=== PATIENT | male | born 1975 | race Caucasian/White ===

== ENCOUNTER 2017-02-08 10:10 | Day surgery (SDC) | payer OTHER ==
[~2017-02-08] VITALS: Ht 177.8 cm; Wt 65.2 kg
[2017-02-08] VITALS (8 sets, daily range): BP systolic 110–129; BP diastolic 57–74; PULSE 50–82; RESP 14–22; O2SAT 95–99
[~2017-02-08 10:10] MED LIST: CeFAZolin 2 Gm/50 mL D5W IV Premix IV SCH; IBUP200C PO; KLO1T PO; Lactated Ringer's 1,000 ML IV SCH
[2017-02-08] MEDS ORDERED: fentaNYL-PF 50 mCg/mL 2 mL Inj ONE (10:11)
[2017-02-08] MEDS ORDERED: Ondansetron 2 mg/mL 2 mL Inj ONE (10:11)
[2017-02-08] MEDS ORDERED: Lidocaine PF 1% 30 mL Inj ONE (10:11)
[2017-02-08] MEDS ORDERED: Bupivacaine-MPF 0.5% W/EPI 30 mL Inj ONE (10:11)
[2017-02-08] MEDS ORDERED: EPHEDrine/NS 5 mg/mL 5 mL Syringe ONE (10:11)
[2017-02-08] MEDS ORDERED: Rocuronium 10 mg/mL 5 mL Inj ONE (10:11)
[2017-02-08] MEDS ORDERED: Propofol 10,000 mCg/mL 20 mL Inj ONE (10:11)
[2017-02-08] MEDS ORDERED: Lactated Ringer's 1,000 ML IV ONE (10:59)
[2017-02-08] MEDS ORDERED: Lactated Ringer's 1,000 ML IV SCH (11:18)
[2017-02-08] MEDS ORDERED: Lactated Ringer's 500 ML IV PRN (11:18)
--- NOTE | 2017-02-08 11:18 | PCM.HPANE ---
Patient Data Date of Service: Feb 08, 2017 ([id number]) Surgeon Admitting Provider: Attending Provider:Heladio Joel DO Primary Care Physician:Eliel Ellsworth MD Other Provider:Zion Gómez Anesthesia Reason for Visit Right Shoulder Oa, Impingement Ht/WT & BMI Height (Feet): 5 Height (Inches): 10.00 Weight (Kilograms): 65.220 Body Mass Index 20.00 Allergies Coded Allergies: No Known Allergies (Verified Allergy, Severe, 01/09/10) Past Anesthesia History Anesthesia History: Denies:: Anesthesia Reactions, Fam Anesthesia Reaction Diabetes History Hx Diabetes?: No MRSA MRSA: No Medications Home Meds Incl Beta Kimberlee: No Reported Medications Ibuprofen 200 Mg [id number] Mg PO QID PRN For Pain Ref 0 02/03/17 Clonazepam 1 Mg Tablet1 Mg PO DAILY Ref 0 02/03/17 Discontinued Reported Medications ClonazePAM-Expunged Drug, Do Not Renew! 1 Mg Tablet1 Mg PO HS 01/09/10 History History of ENT Problems?: No HEENT History: Denies:: Abnormal Airway Hearing Problem Denture Type: None Teeth Condition: Missing Teeth Hx of Heart Problems?: Yes Cardiovascular History: Positive for:: Hypertension Denies:: Congestive Heart Failure Hx of Respiratory Problem?: No Respiratory History: Denies:: Asthma COPD Emphysema Oxygen Administration Tuberculosis Use of C-PAP Machine Hx Neurologic Problems?: No Hx of GI Problems?: No Hx of Problems?: No Genitourinary History: Denies:: Urinary Tract Infection Male Hx: Denies:: Prostate Problems Skin History: Denies:: History Skin Disorders? Hx Musculoskeletal Problems?: Yes Musculoskeletal History: Positive for:: Back Injury Musculoskeletal Trauma (right shoulder current admission problem) Hx of Psycho/Social Problems?: No Psycho Social History: Positive for:: Anxiety Hx Depression Hx Surgeries?: Yes (open right adrenalectomy, hemorrhoidectomy, left bursectomy ) Hx Any Other Health Problems?: Yes Other History: Positive for:: Endocrine Disease (right adrenal pheochromocytoma 2013) Hospitalization Denies:: Cancer Thyroid Disease History Blood Transfusions: Denies:: Blood Transfuse Reaction Blood Transfusions Hx Diabetes: No Hx Alcohol Use: NoHx Substance Use: NoHave You Smoked inLast 12 mo: No Stop/Bang S-Snoring: Do You Snore Loudly: No T-Tired: feel tired, fatigued: No O-Obsered: Observed not breath: No P-Blood Pressure: treated: No B- Body Mass Index > 35 kg/m2: No A- Age over 50: No N- Neck Large Circumference: No G- Gender Male: Yes DAYDAY Total Score: 1 DAYDAY Risk Assessment: Low Risk, <3 Yes Risk Assessment Category Category 1A: Patient has history of documented sleep apnea, and HAS NOT received any narcotic, sedative or anesthesia administration during this stay. Category 1B: Patient has history of documented sleep apnea, and HAS received any narcotic , sedative or anesthesia administration during this stay Category 2: Patient has SUSPECTED Obstructive Sleep Apnea, and HAS received any narcotic , sedative or anesthesia administration during this stay. Category 3: Patient has SUSPECTED Obstructive Sleep Apnea and HAS NOT received narcotic, sedative or anesthesia administration during this stay. Category 4: Outpatient in Procedural Areas with known sleep apnea or who screen positive for High Risk via the STOP/BANG questionnaire. Exam Exam Vital Signs Vital Signs Date Time Temp Pulse Resp B/P Pulse Ox O2 Delivery O2 Flow Rate FiO2 02/08/17 10:25 36.5 50 14 126/70 99 Room Air General Appearance: Alert, Oriented X3, Cooperative HEENT/AIRWAY: MP 1 Lungs: Clear to Auscultation Heart: Exam Unremarkable Meds/Labs/Diagnostics Admission Meds Current Medications Lactated Ringer's (Lr) 1,000 ml @ ud STK-MED ONCE IV Last administered on 02/08t 10:59; Start 02/08/17 at 10:59; Stop 02/08/17 at 11:00; Status DC Plan Impression Patient chart reviewed, patient interviewed and anesthestic plan with risks, benefits, and alternatives discussed, and informed consent obtained. NPO per Anesth. Guidelines: Yes ASA Physical Status: ASA2 Mod Systemic Disease Anesthetic Plan: GA Bene/Risks/Altern/Consents: Yes HP Complete Prior to Induction: Yes Jorge Stewart MD Feb 08, 2017 11:18
[2017-02-08] MEDS ORDERED: MetoCLOpramide 5 mg/mL 2 mL Inj IVPUSH PRN (11:20)
[2017-02-08] MEDS ORDERED: Phenylephrine 10,000 mCg/mL Inj IVPUSH PRN (11:20)
[2017-02-08] MEDS ORDERED: Dexamethasone 4 mg/mL Inj IVPUSH PRN (11:20)
[2017-02-08] MEDS ORDERED: fentaNYL-PF 50 mCg/mL 2 mL Inj IVPUSH PRN (11:20)
[2017-02-08] MEDS ORDERED: Ondansetron 2 mg/mL 2 mL Inj IVPUSH PRN (11:20)
[2017-02-08] MEDS ORDERED: HYDROmorphone 1 mg/mL Inj IVPUSH PRN (11:20)
[2017-02-08] MEDS ORDERED: EPHEDrine Sulfate 50 mg/mL Inj IVPUSH PRN (11:20)
[2017-02-08] MEDS ORDERED: oxyCODONE-Acetamin 5-325 mg Tablet PO PRN (11:25)
--- NOTE | 2017-02-08 13:10 | PCM.ANEP1 ---
Post Anesthesia PACU Phase 1 Assessment Vital Signs 92, 16, 99%, 127/57, 36.3 Vital Signs Date Time Temp Pulse Resp B/P Pulse Ox O2 Delivery O2 Flow Rate FiO2 02/08/17 10:25 36.5 50 14 126/70 99 Room Air Anesthetic Administered: GA, Regional Block Level of Alertness: Awake, talking BANKS's with Equal Strength: Yes Pain: No Pain Scale Score: 0 Nausea or Vomiting: No CV Function & Hydration Stable: Yes Airway Device: none Lungs: Clear to Auscultation Dermatome Level: Full Sensation (shoulder numb) Summary uneventful GETA and block PACU Phase 2 Assessment Complications: No Follow up Care: No Patient Instructions Provided: N/A Jorge Stewart MD Feb 08, 2017 13:10
--- NOTE | 2017-02-08 14:46 | OP ---
[address] [address] OPERATIVE REPORT PATIENT: JOSE VILLAGRAN : 1975 MR#: [id number] ADMIT: 02/08/2017 JOB ID: [id number] DATE OF SURGERY: 02/08/2017 PREOPERATIVE DIAGNOSIS(ES): 1. Right shoulder rotator cuff tendinopathy. 2. Right shoulder SLAP tear. 3. Right shoulder impingement syndrome. 4. Right shoulder acromioclavicular arthritis. POSTOPERATIVE DIAGNOSIS(ES): 1. Right shoulder rotator cuff tendinopathy. 2. Right shoulder type 1 SLAP tear. 3. Right shoulder impingement syndrome. 4. Right shoulder acromioclavicular arthritis. PROCEDURES: 1. Right shoulder arthroscopy with debridement of labrum and rotator cuff. 2. Right shoulder arthroscopy with subacromial decompression and acromioplasty. 3. Right shoulder arthroscopy with distal clavicle excision. SURGEON: Heladio Joel D.O. PEDIATRIC SURGEON: Yue Genao PA-C The participation of the DAVI was necessary for help with manipulation of the intra-articular equipment and for primary closure at the conclusion of the case. BRIEF HISTORY: The patient is a pleasant 41-year-old male that presented to me with a longstanding history of right shoulder pain. He had failed conservative treatment and did present with an MRI that demonstrated rotator cuff tendinopathy with a possible SLAP tear. I treated him with an intra-articular injection of steroid and have progressed him further with therapy. He had improvements with motion and strength, but continued to have pain. I thus discussed with the patient the option to proceed with an arthroscopy with debridement and possible repair of the SLAP tear with subacromial decompression and distal clavicle excision. He understood the risks include, but not limited to, neurovascular injury, tendon injury, infection, failure to resolve the patient's preoperative symptoms, stiffness, persistent pain, all of which may require further intervention. The patient had all questions answered. Consent was signed and placed in the chart. PROCEDURE IN DETAIL: The patient was brought to the operative suite and placed supine on the operating table. Surgical time-out was performed. Everyone in the room was in agreement. After appropriate anesthesia was obtained, the patient was placed in the beach chair position with all prominences well padded. Right upper extremity was then prepped and draped in a sterile fashion. The right arm was then placed into an arthroscopic arm storm. A standard posterior viewing portal was then developed in the typical fashion. The camera introduced into the glenohumeral joint. On gross observation, there was no chondromalacia noted to the humeral head or the glenoid. There was some fraying and a large flap to the superior aspect of the labrum. The undersurface of the rotator cuff was found to be intact. An anterior working portal was then developed. A shaver introduced to debride back the superior flap of labral tissue. Next a probe was inserted to evaluate the superior labrum which was found to be intact representing only a type 1 SLAP tear. The biceps was brought further into the joint to evaluate its tendon. It was within the bicipital groove. There was no evidence of tendinopathy. The camera was then brought into the subacromial space. There was hypertrophic bursa. A lateral working portal was then created and a shaver introduced to perform an extensive bursectomy. The bursal surface of the rotator cuff was able to be identified and then probed and no evidence of a rotator cuff tear was appreciated. The undersurface of the acromion was further delineated utilizing a surface electrocautery wand. Had a slight under hang to the anterior aspect of the acromion and bur next was used to perform an acromioplasty. Next, the bur was brought through an anterior portal to perform a distal clavicle excision of approximately 8-10 mm in width. The arthroscopic probe was removed from the joint and the portals closed with nylon. The patient was then placed in a bulky soft dressing and into a sling. ESTIMATED BLOOD LOSS: Less than 25 cc. COMPLICATIONS: None. DISPOSITION: The patient tolerated the procedure well. Anesthesia was reversed and the patient was transferred to PACU for recovery. POSTOPERATIVE PLAN: The patient will followup in my office in two weeks. I will discontinue the sling at that time and get him into formal physical therapy to start working on range of motion exercises.
== END 2017-02-08 23:59 | disposition home or self-care (01) ==
LOC: SAS 10:10
PROVIDERS: ATTEND Orthopaedic Surgery
DX: S43.431A Superior glenoid labrum lesion of right shoulder, initial encounter (principal); M19.011 Primary osteoarthritis, right shoulder; M75.41 Impingement syndrome of right shoulder; M67.921 Unspecified disorder of synovium and tendon, right upper arm; M67.911 Unspecified disorder of synovium and tendon, right shoulder; I10 Essential (primary) hypertension; F41.8 Other specified anxiety disorders
CPT/HCPCS: 29807; 29826; 29827; 29828; 76942; J0171; J0690; J2250; J2405; J3010; J7120